=== PATIENT | male | born 1995 | race Caucasian/White ===

== ENCOUNTER 2017-02-25 13:29 | Emergency (ER) | payer OTHER, BC | END 2017-02-25 16:04 | disposition home or self-care (01) | LOC: FTE 13:29 | DX: H93.8X2 Other specified disorders of left ear (principal) | CPT/HCPCS: 99282; Z7502 ==

== ENCOUNTER 2017-05-31 11:04 | Emergency (ER) | payer OTHER ==
[2017-05-31] MEDS: LIDOCAINE 1% (MDV) 10 ML INJ INFIL (14:28)
== END 2017-05-31 15:43 | disposition home or self-care (01) ==
LOC: FTE 11:04
DX: L03.012 Cellulitis of left finger (principal)
CPT/HCPCS: 10060; 99283-25